=== PATIENT | female | born 1960 | race Caucasian/White ===

== ENCOUNTER → 2021-02-02 14:13 | Outpatient (CLI) | payer OTHER, SELFPAY ==
[2021-02-02 16:50] LABS: Urine Sodium 18 mmol/L (Not Establ.)
== END ==
LOC: POLAB3 14:19 → LABSPEC 14:23
PROVIDERS: Visit Provider Internal Medicine Nephrology
DX: E87.1 Hypo-osmolality and hyponatremia (principal)
CPT/HCPCS: 84300